=== PATIENT | male | born 1990 | race Caucasian/White ===

== ENCOUNTER → 2019-08-15 | Outpatient (REF) | payer OTHER | LOC: M SMT 17:05 | PROVIDERS: ATTEND Urology | DX: Z30.2 Encounter for sterilization (principal) ==

== ENCOUNTER → 2019-09-09 | Outpatient (REF) | payer OTHER | LOC: M LAB REF 16:34 | PROVIDERS: ATTEND Surgery | DX: D17.1 Benign lipomatous neoplasm of skin and subcutaneous tissue of trunk (principal) ==

== ENCOUNTER → 2020-02-06 | Outpatient (REF) | payer OTHER ==
[2020-02-06 17:58] LABS: SEMEN APPEARANCE OPAQUE (OPAQUE); SEMEN VISCOSITY VISCOUS (LIQUID); SEMEN pH 8.5 (7.0-8.0); WBC CONCENTRATION <=1 M/ml (<=1 M/ml)
== END ==
LOC: M SMT 17:29
PROVIDERS: ATTEND Urology
DX: Z30.8 Encounter for other contraceptive management (principal)